=== PATIENT | female | born 1950 | race Caucasian/White ===

== ENCOUNTER 2016-12-18 05:39 | Inpatient (IN) | payer BC ==
--- NOTE | 2016-12-13 07:49 | MH ---
cc: BRUCE COLÓN M.D. DATE OF ADMISSION: 12/18/16 12/18/2016 ADMITTING DIAGNOSIS Osteoarthritis of the left knee, pain of the left knee. HISTORY OF PRESENT ILNESS The patient is a 66-year-old white female who has had a rather lengthy history of pain involving her left knee. Her history extended back to the 1980s when she originally became symptomatic with pain involving both knees as related to osteoarthritis. Over 10 year interval of time she had undergone at least two arthroscopic surgeries involving each knee for ongoing management but became progressively more symptomatic with pain. In 2004, she subsequently underwent a right total knee arthroplasty as completed by Dr. David Munoz in the [facility]. The patient reported an uneventful recovery thereafter, but she continued to experience pain about her left knee that became more pronounced within the past two years for which she had received additional physical therapy intervention as well as having undergone additional cortisone injections while taking Tylenol for pain relief. She became progressively more symptomatic with pain associated with swelling, grinding and a cracking sensation as well as an occasional locking and giving away, especially as related to prolonged walking activities and attempting to negotiate stairs. She had experienced obvious limitations with regards to all activities of daily living while attempting to swim as part of her exercise program. She presented to the undersigned physician in October of this year and, at that time, her previous x-ray studies demonstrated tricompartmental degenerative changes for which various treatment options were reviewed. The pros and cons of continuing with conservative management versus operative intervention that would involve total knee arthroplasty were outlined in detail. Emphasis was made regarding the fact that the decision to proceed with surgery would be left entirely to the patient's discretion. The patient readily admitted that she felt she had exhausted all modes of conservative treatment and, given the progressive nature of her pain associated with pronounced limitations of activities of daily living and failure to respond to modifications of her lifestyle, she was ready to proceed with surgery as discussed. In compliance with her wishes, she has currently been scheduled for admission in order that left total knee arthroplasty be accomplished. PAST MEDICAL HISTORY, HOSPITALIZATIONS AND SURGERIES In addition to the arthroscopic procedures as described as well as having undergone right total knee arthroplasty have included - 1. Repair of the left Achilles tendon rupture 2. Rotator cuff surgery of the right shoulder 3. Abdominal hysterectomy and oophorectomy 4. Appendectomy, 5. Tonsillectomy, 6. Colonoscopy, 7. Upper endoscopy with esophageal dilation 8. Laparoscopic cholecystectomy. 9. The patient has also been hospitalized in the past for psychiatric management and continues to receive ongoing ECT treatment. Medical illnesses include 1. Depression, 2. Thyroid disease, 3. Urinary incontinence 4. Acid reflux 5. Achilles tendonitis 6. Osteoporosis 7. Sleep disorder. MEDICATIONS Current 1. Paroxetine 50 mg daily. 2. Levofloxacin 150 mg daily. 3. 50 mg daily 4. Pantoprazole 40 mg daily. 5. Diclofenac 75 mg twice daily 6. Forteo 20 mg as a one-time injection on a scheduled basis. 7. Trazodone 150-200 p.r.n. sleep. ALLERGIES STATIN DRUGS IODINE SULFA (ALL HAVE CAUSED RASH FORMATION) ZOFAN - HAS ACTUALLY BEEN ASOCIATED WITH A NAUSEA TYPE RESPONSE. REVIEW OF SYSTEMS She does wear glasses. Denies headache, seizure or syncope. No sinus congestion or epistaxis. Auditory acuity intact. No tinnitus. No bleeding gums or dysphagia. Denies cough, shortness of breath, upper respiratory infection, pneumonia or tuberculosis. No angina or heart disease. Her appetite is good, bowel movements are regular. No hepatitis, gallbladder disease, ulcers or hemorrhoids. She has had previous urinary tract infection. No kidney stones, although she has a history of urinary incontinence. Fractures of both little fingers treated non-operatively, history of nasal fracture, psychiatric management for depression and anxiety disorder. She also describes having a history of vocal cord tremors which apparently has been associated with some dysphagia and is prone to develop keloids. Her remaining review of systems is unremarkable and noncontributory. FAMILY HISTORY The patient has had a partner for 37 years, but they were within the past two years. Her partner is 75 years of age and indicated to be in good health. Her family history is noncontributory in that the patient indicates she was adopted and has no pertinent history in this regard. SOCIAL HISTORY The patient has been retired for almost 17 years. 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 She admits to a one half pack per day use of tobacco for almost 30 years. Ethanol consumption on a limited and social basis. PHYSICAL EXAMINATION Height 5 feet 7 inches, weight 165 pounds. An alert, oriented and responsive 66-year-old white female who sits quietly upon the examination table with no obvious distress. HEENT: Pupils are equally round and reactive to light. Extraocular movements full. Sclerae clear. External nares clear. External auditory canals clear. Dental intact. Mucous membranes pink and moist. Pharynx clear. NECK: Supple. There is mild discomfort at the extremes of motion indicated to be chronic in nature. Carotid pulse palpable bilaterally. Trachea midline. Thyroid without enlargement. LUNGS: Clear to auscultation and percussion. No CVA tenderness. No discomfort throughout the dorsal lumbar spine. HEART: Regular rhythm. No murmur or gallop. ABDOMEN: Soft, nontender. Bowel sounds present. PELVIC: Per primary care physician. EXTREMITIES: Left knee - there is medial joint line tenderness without palpable deformity. No swelling or effusion. Apprehension and compression sign negative. Zero to 115 degree range of motion with discomfort at the extreme of flexion and crepitation elicited. No collateral ligamentous laxity. Silvia test and drawer sign negative. Pivot shift and Cal sign positive for anterior knee pain. Straight-leg raising unremarkable at 80 degrees, satisfactory mobility of the left hip with no associated pain. Distal sensory grossly intact. Independent gait. NEUROLOGIC: Cranial nerves II-XII grossly intact. IMPRESSION Osteoarthritis of the left knee, pain left knee. Comorbidities including depression, hypothyroidism, urinary incontinence and acid reflux. PLAN Left total knee arthroplasty. The nature of the planned surgical procedure, the potential complications and risks associated, the expectations of surgery and the consent form have been thoroughly reviewed with the patient prior to her admission to the hospital. Caitlin has indicated her full understanding regarding all of the above and given consent to proceed with treatment as outlined. Medical evaluation and clearance for surgery has been completed by her primary care physician, Dr. Bee Knox. Cardiology clearance per Dr. Fair. MD NEYMAR Bella/ /4:44 PM /7:39 AM
[~2016-12-18] VITALS: Ht 170.2 cm; Wt 84.0 kg
[~2016-12-18 05:39] MED LIST: IBUP-232 PO; LEVO175T2 PO; MIRA50TA PO; PANT40TA3 PO; PAXI25TA5 PO; TRAZ50TA12 PO; WALKER STANDARD
[2016-12-18] MEDS ORDERED: ceFAZolin INJ 1,000 MG VIAL ONE (05:59)
[2016-12-18] MEDS ORDERED: LACTATED RINGER'S 1000 ML IV PRN (06:00)
[2016-12-18] MEDS ORDERED: POVIDONE IODINE 5% (ANTISEPSIS KIT) 4 APPLICATIONS EACH NARE PRN (06:00)
[2016-12-18] MEDS ORDERED: ceFAZolin 2 GM PREMIX 50 ML IV SCH (06:00)
[2016-12-18] MEDS ORDERED: SODIUM CHLORID 0.9% 500 ML IV PRN (06:00)
[2016-12-18] MEDS ORDERED: INSULIN HUMAN REGULAR 1,000 UNITS/10 ML VIAL SQ PRN (06:00)
[2016-12-18] MEDS ORDERED: CHLORHEXIDINE GLUCONATE 2 % 1 PACK (2 CLOTHS) TOPICAL PRN (06:00)
[2016-12-18] MEDS ORDERED: METOPROLOL TARTRATE 25 MG TAB PO PRN (06:00)
[2016-12-18] MEDS ORDERED: TRANEXAMIC ACID 1 GM PRIOR TO PROCEDURE IV SCH ×2 (06:00)
[2016-12-18] MEDS ORDERED: FORT600S SQ (06:24)
[2016-12-18] MEDS ORDERED: APREPITANT 40 MG CAP ONE (07:03)
[2016-12-18] MEDS ORDERED: ACETAMINOPHEN 1000 MG/100 ML 100 ML IV ONE (07:03)
[2016-12-18] MEDS ORDERED: FAMOTIDINE 20 MG/2 ML VIAL ONE (07:04)
[2016-12-18] MEDS ORDERED: CHLORHEXIDINE GLUCONATE 4% SOLN 120 ML BTL TOPICAL SCH (07:30)
[2016-12-18] MEDS ORDERED: MIDAZOLAM HCL 2 MG/2 ML VIAL ONE (07:38)
[2016-12-18] MEDS ORDERED: BUPIVACAINE HCL PF 0.5% 30 ML VIAL NERV BLOCK ONE ×2 (08:45→09:31)
[2016-12-18] MEDS ORDERED: TRANEXAMIC ACID 1 GM POST-OP IV SCH ×2 (09:00)
[2016-12-18] MEDS ORDERED: Post-op Orders (for Pharmacy) MISC XX ONE (09:46)
[2016-12-18] MEDS ORDERED: DO NOT ADM ANY ANTICOAGULANT DRUGS PRN (09:46)
[2016-12-18] MEDS ORDERED: PROMETHAZINE INJ 25 MG/ML VIAL IM PRN (10:00)
[2016-12-18] MEDS ORDERED: MISCELLANEOUS PHARMACY INFORMATION XX ONE (10:00)
[2016-12-18] MEDS ORDERED: DOCUSATE SODIUM 100 MG CAP PO PRN (10:00)
[2016-12-18] MEDS ORDERED: ACETAMINOPHEN 325 MG TAB PO PRN (10:00)
[2016-12-18] MEDS ORDERED: SODIUM CHLORIDE 0.9% FLUSH 5 ML FLUSH IVF PRN (10:00)
[2016-12-18] MEDS ORDERED: TRANEXAMIC ACID INJ 1,000 MG in SODIUM CHLORIDE 0.9% INJ 100 ML IV SCH (10:00)
[2016-12-18] MEDS ORDERED: NALOXONE HCL 0.4 MG/ML AMP IV PRN (10:00)
[2016-12-18] MEDS ORDERED: diphenhydrAMINE HCL 25 MG CAP PO PRN (10:00)
[2016-12-18] MEDS ORDERED: ZOLPIDEM TARTRATE 5 MG TAB PO PRN (10:00)
[2016-12-18] MEDS ORDERED: *PROMETHAZINE 25 MG/ML VIAL PERIprocedural use ONLY ONE (10:04)
[2016-12-18] MEDS ORDERED: *morphine SULFATE 8 MG/ML PERIprocedure ONLY ONE (10:04)
--- NOTE | 2016-12-18 10:30 | MP ---
cc: BRUCE RIOS DATE OF SURGERY: December 18, 2016 PREOPERATIVE DIAGNOSIS Osteoarthritis of the left knee and pain of the left knee. POSTOPERATIVE DIAGNOSIS Osteoarthritis of the left knee and pain of the left knee. PROCEDURE Left total knee arthroplasty. SURGEON Dr. Rios ANESTHESIA General endotracheal. INDICATIONS A 66-year-old white female with a lengthy history of pain involving her left knee extending back to the 1980s when she had become symptomatic with pain involving both knees as related to osteoarthritis. Over a 10-year interval of time she had undergone at least two arthroscopic surgeries involving each knee for management but became progressively more symptomatic with pain. In 2004 she underwent a right total knee arthroplasty as completed by Dr. David Munoz in the [facility]. The patient reported an uneventful recovery thereafter but continued to experience pain of her left knee that became more pronounced within the past 2 years for which she had received additional physical therapy as well as having undergone cortisone injections and taking Tylenol for pain relief. She became progressively more symptomatic with pain associated with swelling, grinding and a cracking sensation with an occasional locking and giving way, especially as related to prolonged walking activities and attempting to negotiate stairs. She was obviously experiencing considerable limitations with regards to all activities of daily living while attempting to swim as part of her exercise program. She presented to the undersigned physician in October of this year and at that time her x-ray studies had demonstrated tricompartmental degenerative changes for which treatment options were reviewed. The pros and cons of continuing with conservative management versus operative intervention that would involve a total knee arthroplasty were outlined in detail. Emphasis was made regarding the fact that the decision to proceed with surgery would be left entirely to the patient's discretion. The patient readily admitted that she felt she had exhausted all modes of conservative treatment and given the progressive nature of her pain associated with pronounced limitations she was ready to proceed with surgery as discussed. In compliance with her wishes she was scheduled for admission at this time in order that total knee arthroplasty be completed. FORMAT Following induction of satisfactory general anesthesia as completed per the Department of Anesthesia, a tourniquet was established around the proximal portion of the left lower extremity. The extremity proper was isolated with a U drape thereafter being prepped with Betadine solution and draped into a sterile field in the routine manner. Prior to initiation of the actual procedure the standard time-out protocol was completed, all parameters were appropriately addressed and confirmed by operating room personnel. The extremity was elevated for approximately 1 minute and the tourniquet thus inflated to 250 mmHg pressure. A sharp skin incision was initiated midline over the anterior aspect of the knee and developed to underlying subcutaneous tissue with hemostasis maintained by electrocautery. By deepening dissection the anterior capsule was exposed. A medial capsulotomy was completed and the patella subluxed in a lateral orientation. Examination of the joint space revealed tricompartmental degenerative changes but definitely being most pronounced about the medial compartment where there was complete erosion of articular cartilage and underlying subchondral bone exposed. The articular surface of the patella was resected. The three holed guide was utilized for establishing post holes. Anterior cruciate ligament as well as medial and lateral meniscus structures were sharply excised. A centering hole was placed in the distal aspect of the femur allowing positioning of the intramedullary guide. The distal femoral cutting jig was attached and the distal femur resected. AP measurement noted 65 mm sizing to be appropriate. The matching cutting block was positioned, anterior, posterior and chamfer cuts were completed. The tibial plateau was subluxed in an anterior orientation allowing positioning of the extramedullary guide. The tibial plateau was resected and measured with 75 mm sizing determined to be satisfactory. A trial reduction followed utilizing a 65 mm anatomic femoral component, a 75 mm tibial base with a 10 mm bearing insert trialed. The knee was readily brought to full extension. There was no laxity to varus valgus stress at both zero and 90 degrees flexed posture. Orientation was confirmed with appropriate measurement of the pelvic guide through the mechanical axis of the knee. A trial reduction followed utilizing a 31 mm standard patellar button, again good tracking demonstrated with no tendency toward subluxation. All trial components being removed the remaining portion of the proximal tibia was prepared for insertion of the permanent component. The joint space was thoroughly lavaged with pulsating antibiotic solution, hemostasis being maintained by electrocautery. An autogenous bone plug was inserted into the distal femoral guide hole and thereafter a preparation of cobalt bone cement was utilized in inserting knee components in a sequential fashion which included a 75 mm fixed cruciate tibial plate to which a 10 mm Vanguard tibial bearing insert was secured with locking bain. The 65 mm Vanguard femoral component was firmly seated. Excess cement being removed the knee was brought to full extension and thereafter a three post standard all poly patellar button was attached and maintained in place with patellar clamp while cement hardening was completed. Final range of motion assessment noted good tracking stability throughout the knee. Irrigation repeated with hemostasis maintained. Autovac drain tubes were inserted through superior stab wounds. The capsule was repaired with 0 Vicryl suture. The remaining portion of the wound was closed in layers in routine manner. Skin margins being reapproximated with a running subcuticular 3-0 Vicryl suture over which Steri-Strips were applied. Xeroform gauze and a bulky dry sterile dressing were placed. Tourniquet deflated after 54 minutes of tourniquet time, the extremity being supported in a canvas knee splint, anesthesia was discontinued and she was thereafter transferred to a hospital bed and returned to the recovery room in satisfactory condition having tolerated her operative procedure well. Estimated blood loss was approximately 150 ccs as determined per anesthesia. All implants were of the [employer] surveillance operator. MD NEYMAR Bella/TLL /9:48 AM /9:59 AM
[2016-12-18] MEDS: DEXT 5%-NACL 0.45% 1000 ML INJ 1,000 ML IV SCH ×2 (11:00→17:58)
--- NOTE | 2016-12-18 11:14 | RADRPT ---
EXAM DATE/TIME: 12/18/2016 10:49 [facility] COMPARISON: No previous studies available for comparison. INDICATIONS : Post op left knee arthroplasty. MEDICAL HISTORY : None. SURGICAL HISTORY : Lumbar surgeries. ENCOUNTER: Initial ACUITY: 1 day PAIN SCORE: Non-responsive. LOCATION: Left knee FINDINGS: 2 views of the knee show a total knee prosthesis in good position. No fracture or dislocation is obse rved. Soft tissue swelling is noted. Surgical drains. CONCLUSION: Total hip prosthesis in good position. Lito Sierra Jr., MD on December 18, 2016 at 11:12 Board Certified Radiologist. This report was verified electronically.
[2016-12-18] MEDS: MORPHINE SULFATE 30 MG/30 ML PCA IV SCH (11:26)
[2016-12-18] MEDS ORDERED: PHENYLEPH/NS 1000 MCG/10 ML SYR IV ONE (12:00)
[2016-12-18] MEDS ORDERED: NEOSTIGMINE 3 MG/3 ML SYR IV ONE (12:00)
[2016-12-18] MEDS ORDERED: PROPOFOL 200 MG/20 ML AMP IV ONE (12:00)
[2016-12-18] MEDS ORDERED: LACTATED RINGER'S 1000 ML INJ 1,000 ML IV ONE (12:00)
[2016-12-18] MEDS: PCA - TOTAL MG MORPHINE DELIVERED PER SHIFT SCH ×2 (14:00→23:23)
[2016-12-18 15:54] VITALS: BP 120/56; PULSE 74; RESP 18; TEMP 95.9; O2SAT 95
--- NOTE | 2016-12-18 19:42 | PD.CONS ---
HPI Service [facility] Consult Requested By Orthopedic surgery. Reason for Consult Medical management. Primary Care Physician Non-Staff Diagnoses: History of Present Illness Ms. Brand is a pleasant 66 year old female with a history of long standing osteoarthritis, hypothyroidism who underwent left total knee arthroplasty on . Patient was seen after she came to the orthopedic floor after surgery. At the time of this interview, patient is somewhat drowsy, her significant other is at bedside. Patient has no specific concerns. She reports significant left knee pain despite conservative management. Her pain is well controlled. Denies any changes in bowel or bladder habits. Denies any chest pain, shortness of breath, fever, chills. No abdominal pain. Review of Systems Except as stated in HPI: all other systems reviewed are Neg Past Family Social History Allergies: Coded Allergies: amlodipine (Unverified Allergy, Intermediate, Rash, 12/18/16) atorvastatin (Unverified Allergy, Intermediate, Rash, 12/18/16) ondansetron (Unverified Allergy, Intermediate, 12/18/16) pravastatin (Unverified Allergy, Intermediate, Rash, 12/18/16) simvastatin (Unverified Allergy, Intermediate, Rash, 12/18/16) meperidine (Unverified Allergy, Mild, 12/18/16) Sulfa (Sulfonamide Antibiotics) (Unverified Allergy, Unknown, 12/18/16) iodine (Unverified Allergy, Unknown, 12/18/16) potassium iodide (Unverified Allergy, Unknown, 12/18/16) povidone-iodine (Unverified Allergy, Unknown, 12/18/16) sodium iodide (Unverified Allergy, Unknown, 12/18/16) Past Medical History Hypothyroidism Depression Insomnia GERD Achilles tendonitis Osteoarthritis Osteoporosis Past Surgical History Achilles tendon repair Right shoulder rotator cuff surgery Hysterectomy/oophorectomy Appendectomy, tonsillectomy Right knee arthroplasty Reported Medications Current Medications Lactated Ringer's 1,000 ml @ 30 mls/hr Q24H PRN IV SEE LABEL COMMENTS; Start at 06:00; Stop 12/18/16 at 10:11; Status DC Sodium Chloride 500 ml @ 30 mls/hr [id number] PRN IV SEE LABEL COMMENTS; Start at 06:00; Stop 12/18/16 at 10:11; Status DC Metoprolol Tartrate (Lopressor) 25 mg INFORMATICS SPECIALIST PRN PO SEE LABEL COMMENTS; Start 12/18/16 at 06:00; Stop 12/21/16 at 05:59 Povidone Iodine (Betadine 5% Antisepsis Kit) 1 applic INFORMATICS SPECIALIST PRN EACH NARE SEE LABEL COMMENTS; Start 12/18/16 at 06:00; Stop 12/21/16 at 05:59; Status Cancel Chlorhexidine Gluconate (Chlorhexidine 2% Cloth) 3 pack INFORMATICS SPECIALIST PRN TOPICAL SEE LABEL COMMENTS Last administered on 12/18/16 06:00; Start 12/18/16 at 06:00 ; Stop 12/21/16 at 05:59 Insulin Human Regular (NovoLIN R INJ) See Protocol Table ... INFORMATICS SPECIALIST PRN SQ SEE PROTOCOL TABLE; Start 12/18/16 at 06:00; Stop 12/21/16 at 05:59 Cefazolin Sodium/ Dextrose 50 ml @ 100 mls/hr INFORMATICS SPECIALIST IV Last administered on 12/18/16 06:58; Start 12/18/16 at 06:00; Stop 12/18/16 at 10:12; Status DC Tranexamic Acid 1000 mg/Sodium Chloride 110 ml @ 220 mls/hr ONCE IV Last administered on 12/18/16 07:00; Start 12/18/16 at 06:00; Stop 12/18/16 at 12:00 ; Status DC Tranexamic Acid 1000 mg/Sodium Chloride 110 ml @ 220 mls/hr ONCE IV Last administered on 12/18/16 11:28; Start 12/18/16 at 09:00; Stop 12/18/16 at 15:00 ; Status DC Cefazolin Sodium (Ancef Inj) 2,000 mg STK-MED ONCE .ROUTE Last administered on 12/18/16 07:48; Start 12/18/16 at 05:59; Stop 12/18/16 at 06:00; Status DC Acetaminophen 100 ml @ As Directed STK-MED ONCE IV ; Start 12/18/16 at 07:03; Stop 12/18/16 at 07:04; Status DC Aprepitant (Emend) 40 mg STK-MED ONCE .ROUTE ; Start 12/18/16 at 07:03; Stop at 07:04; Status DC Famotidine (Pepcid Inj) 20 mg STK-MED ONCE .ROUTE ; Start 12/18/16 at 07:04; Stop 12/18/16 at 07:05; Status DC Chlorhexidine Gluconate (Hibiclens 4% Top Soln) 1 applic ONCE TOPICAL ; Start at 07:30; Stop 12/21/16 at 07:29 Midazolam HCl (Versed Inj) 2 mg STK-MED ONCE .ROUTE ; Start 12/18/16 at 07:38; Stop 12/18/16 at 07:39; Status DC Fentanyl Citrate (fentaNYL INJ) 300 mcg STK-MED ONCE .ROUTE ; Start 12/18/16 at 07:38; Stop 12/18/16 at 07:39; Status DC IV Flush (NS Flush) 2 ml UNSCH PRN IVF FLUSH AFTER USING IV ACCESS; Start 12/18 at 10:00 IV Flush (NS Flush) 2 ml BID IVF ; Start 12/18/16 at 21:00 Cefazolin Sodium 1000 mg/Sodium Chloride 100 ml @ 200 mls/hr Q6H IV Last administered on 12/18/16t 18:15; Start 12/18/16 at 13:00; Stop 12/19/16 at 01:29 Miscellaneous Information (Post-op Orders (for Pharmacy)) STAT ONCE XX ; Start 12/18/16 at 09:46; Stop 12/18/16 at 10:18; Status DC Rivaroxaban (Xarelto) 10 mg Q24H PO ; Start 12/19/16 at 09:00 Miscellaneous Medication ([facility] Information) ONCE ONCE XX ; Start at 10:00; Stop 12/18/16 at 10:13; Status DC Acetaminophen/ Hydrocodone Bitart ([place] 5-325 Mg) 1 tab Q4H PRN PO PAIN LESS THAN 5 ON SCALE; Start 12/18/16 at 10:00 Acetaminophen/ Hydrocodone Bitart ([place] 5-325 Mg) 2 tab Q4H PRN PO PAIN SCALE 5 TO 10; Start 12/18/16 at 10:00 Acetaminophen (Tylenol) 650 mg Q6H PRN PO Temp > 101; Start 12/18/16 at 10:00 Tranexamic Acid 1000 mg/Sodium Chloride 110 ml @ 200 mls/hr UNSCH IV ; Start at 10:00; Stop 12/18/16 at 10:15; Status DC Docusate Sodium (Colace) 100 mg BID PRN PO constipation; Start 12/18/16 at 10: 00 Zolpidem Tartrate (Ambien) 5 mg HS PRN PO SLEEP; Start 12/18/16 at 10:00 Naloxone HCl (Narcan Inj) 0.4 mg UNSCH PRN IV RESPIRATORY RATE LESS THAN 10; Start 12/18/16 at 10:00 Diphenhydramine HCl (Benadryl) 25 mg Q6H PRN PO ITCHING; Start 12/18/16 at 10: 00 Morphine Sulfate (Morphine 1 Mg/ ml ADMITTED ATTORNEYS) 30 mg UNSCH IV Last administered on 11:26; Start 12/18/16 at 10:00; Stop 12/20/16 at 09:59 ADMITTED ATTORNEYS Dosage Infused (Pha) 1 Q8HR .XX Last administered on 12/18/16 14:00; Start 12/18/16 at 14:00; Stop 12/20/16 at 13:59 Dextrose/Sodium Chloride 1,000 ml @ 125 mls/hr Q8H IV Last administered on 11:00; Start 12/18/16 at 09:58 Promethazine HCl (Phenergan Inj) 25 mg Q6H PRN IM nausea; Start 12/18/16 at 10: 00 Morphine Sulfate (*morphine INJ PERIprocedure ONLY) 8 mg STK-MED ONCE .ROUTE Last administered on 12/18/16 10:04; Start 12/18/16 at 10:04; Stop 12/18/16 at 10:05; Status DC Promethazine HCl (*PHENERGAN INJ PERIprocedural ONLY) 25 mg STK-MED ONCE .ROUTE Last administered on 12/18/16 10:04; Start 12/18/16 at 10:04; Stop 12/18/16 at 10:05; Status DC Miscellaneous Information ALL NURSING DEPARTME... UNSCH PRN .XX SEE LABEL COMMENTS; Start 12/18/16 at 09:46; Stop 12/19/16 at 09:45 Family History Mother - Breast cancer Father - colon cancer. Social History Drinks about 3 drinks per week. Smokes about 1/3 pack per day. Denies using illicit drugs. Physical Exam Vital Signs Vital Signs Date Time Temp Pulse Resp B/P (MAP) Pulse Ox O2 Delivery O2 Flow Rate FiO2 12/18/16 15:54 95.9 74 18 120/56 (77) 95 12/18/16 14:02 Nasal Cannula 2.00 12/18/16 13:00 72 16 101/53 (69) 98 Nasal Cannula 2 12/18/16 12:00 84 16 102/53 (69) 98 Nasal Cannula 2 12/18/16 12:00 16 12/18/16 11:30 78 16 101/55 (70) 99 Nasal Cannula 2 12/18/16 11:26 16 12/18/16 11:00 74 16 99/50 (66) 98 Nasal Cannula 2 12/18/16 10:45 78 16 97/51 (66) 98 Nasal Cannula 2 12/18/16 10:30 72 16 96/51 (66) 97 Nasal Cannula 2 12/18/16 10:15 74 16 118/56 (76) 96 Nasal Cannula 2 12/18/16 10:00 74 16 123/55 (77) 97 Nasal Cannula 2 12/18/16 09:46 97.8 80 16 147/63 (91) 95 Nasal Cannula 2 Physical Exam GENERAL: This is a well-nourished, well-developed patient, in no apparent distress. Somewhat drowsy. SKIN: No rashes, ecchymoses or lesions. Warm and dry. HEAD: Atraumatic. Normocephalic. No temporal or scalp tenderness. EYES: Pupils equal round and reactive. No injection or drainage. ENT: Nose without bleeding, purulent drainage or septal hematoma. Airway patent. NECK: Trachea midline. No lymphadenopathy. Supple, nontender, no meningeal signs. CARDIOVASCULAR: Regular rate and rhythm without murmurs, gallops, or rubs. No JVD. RESPIRATORY: Clear to auscultation. Breath sounds equal bilaterally. No wheezes , rales, or rhonchi. GASTROINTESTINAL: Abdomen soft, non-tender, nondistended. No guarding. MUSCULOSKELETAL: Extremities without clubbing, cyanosis, or edema. Able to move all toes. Left knee wrapped. NEUROLOGICAL: Drowsy. Cranial nerves II through XII intact. No focal neurological deficits. Normal speech. Imaging Last Impressions Knee X-Ray 12/18/16 0958 Signed Impressions: Service Date/Time: Sunday, December 18, 2016 10:49 - CONCLUSION: Total hip prosthesis in good position. Lito Sierra Jr., MD Assessment and Plan Problem List: (1) Osteoarthritis of left knee ICD Code: M17.12 - Unilateral primary osteoarthritis, left knee (2) Hypothyroidism ICD Code: E03.9 - Hypothyroidism, unspecified (3) Osteoporosis ICD Code: M81.0 - Age-related osteoporosis without current pathological fracture Assessment and Plan Ms. Brand is a pleasant 66 year old female with a history of osteoporosis, osteoarthritis, hypothyroidism who underwent left total knee arthroplasty on . - Left knee osteoarthritis - s/p Left total knee arthroplasty. - Currently on Morphine ADMITTED ATTORNEYS. - [place] PRN. - Colace for constipation - Xarelto 10mg Q24hrs starting 12/19/2016. - H&H in the AM pending. - Osteoporosis - Patient takes Teriparatide 20mcg SQ daily at home. - Hypothyroidism - GERD - Continue Levothyroxine 175mcg Qday and PPI. - Depression - Continue Paroxetine 25mg Qday. Full code. Xarelto starting 12/19/2016. Thank you for the consult. We will continue to follow this patient. Jerry Michael DO Dec 18, 2016 19:42
[2016-12-18 20:00] VITALS: BP 131/72; PULSE 95; RESP 19; TEMP 99.7; O2SAT 98
[2016-12-18] MEDS: SODIUM CHLORIDE 0.9% FLUSH 5 ML FLUSH IVF SCH (20:05)
[2016-12-18 23:40] VITALS: BP 130/66; PULSE 71; RESP 19; TEMP 99.5; O2SAT 98
[2016-12-19] VITALS (7 sets, daily range): BP systolic 108–129; BP diastolic 54–60; PULSE 68–96; RESP 17–19; TEMP 96.5–100.7; O2SAT 93–98
[2016-12-19] MEDS: DEXT 5%-NACL 0.45% 1000 ML INJ 1,000 ML IV SCH ×4 (00:52→21:58)
[2016-12-19] MEDS: MORPHINE SULFATE 30 MG/30 ML PCA IV SCH (02:41)
[2016-12-19 04:59] LABS: HEMATOCRIT 35.4 % (35.0-46.0); REVIEW FLAG FINAL
[2016-12-19] MEDS: LEVOTHYROXINE SODIUM 75 MCG TAB PO SCH (05:03)
[2016-12-19] MEDS: LEVOTHYROXINE SODIUM 100 MCG TAB PO SCH (05:03)
[2016-12-19] MEDS: PCA - TOTAL MG MORPHINE DELIVERED PER SHIFT SCH ×3 (05:05→19:53)
[2016-12-19] MEDS ORDERED: WALKER STANDARD (06:24)
[2016-12-19] MEDS ORDERED: HYDR-3516 PO (06:24)
[2016-12-19] MEDS ORDERED: ASPI325T PO (06:24)
--- NOTE | 2016-12-19 06:26 | HHI.FF ---
Face to Face Verification Diagnosis: (1) Osteoarthritis of left knee Physical Therapy Gait training Knee: Total knee, Protocol: Left, Full weight bearing Left LE Weight Bearing: WB as tolerated Left LE Range of Motion: Active ROM Nursing Dressing Changes: Daily dressing change I have seen patient Caitlin Brand on 12/19/16. My clinical findings support the need for the requested home health care services because: Limited ability to care for self High risk of falls I certify that my clinical findings support that this patient is homebound because: Post-op weakness Unsteady gait/balance Unsafe to leave home unassisted Hipolito Rios MD Dec 19, 2016 06:26
[2016-12-19] MEDS: RIVAROXABAN 10 MG TAB PO SCH (08:36)
[2016-12-19] MEDS: SODIUM CHLORIDE 0.9% FLUSH 5 ML FLUSH IVF SCH ×2 (08:36→19:51)
[2016-12-19] MEDS: PANTOPRAZOLE SOD 40 MG DELAYED RELEASE TAB PO SCH (08:36)
[2016-12-19] MEDS: PARoxetine 25 MG CONTROLLED RELEASE TAB PO SCH (08:36)
[2016-12-19] MEDS: TOLTERODINE TARTRATE 4 MG CAP LA PO SCH (08:36)
--- NOTE | 2016-12-19 13:47 | HHI.PR ---
Subjective Remarks Follow-up for left knee osteoarthritis status post left total knee arthroplasty. Patient is currently doing well. At the time of this interview patient was eating breakfast but somewhat drowsy as well. No fever or chills. Able to move her left lower extremity. Pain is well controlled. Objective Vitals Vital Signs Date Time Temp Pulse Resp B/P (MAP) Pulse Ox O2 Delivery O2 Flow Rate FiO2 12/19/16 11:47 98 Nasal Cannula 3.00 12/19/16 11:28 96.5 83 18 109/58 (75) 97 12/19/16 08:30 Nasal Cannula 2.00 12/19/16 07:39 97.8 68 18 108/54 (72) 96 12/19/16 05:05 18 12/19/16 04:05 99.1 72 19 129/60 (83) 97 12/19/16 03:18 98 Nasal Cannula 2.00 12/19/16 02:41 16 12/18/16 23:40 99.5 71 19 130/66 (87) 98 12/18/16 23:23 18 12/18/16 20:19 Nasal Cannula 2.00 12/18/16 20:00 99.7 95 19 131/72 (91) 98 12/18/16 15:54 95.9 74 18 120/56 (77) 95 12/18/16 14:02 Nasal Cannula 2.00 I/O 12/18/16 12/18/16 12/18/16 12/19/16 12/19/16 12/19/16 07:00 15:00 23:00 07:00 15:00 23:00 Intake Total 1400 ml 340 ml 340 ml Output Total 100 ml 240 ml Balance 1300 ml 340 ml 100 ml Intake Oral 240 ml 240 ml IV Total 100 ml 100 ml 100 ml Autotransfusion 200 ml Other 1100 ml Output Drainage Total 240 ml Estimated Blood Loss 100 ml # Voids 2 4 # Bowel Movements 0 0 Result Diagram: 12/19/16 0450 Imaging Last Impressions Knee X-Ray 12/18/16 0995 Signed Impressions: Service Date/Time: Sunday, December 18, 2016 10:49 - CONCLUSION: Total hip prosthesis in good position. Lito Sierra Jr., MD Objective Remarks GENERAL: Alert, drowsy. No acute distress. SKIN: Warm and dry. HEAD: Normocephalic. EYES: No scleral icterus. No injection or drainage. NECK: Supple, trachea midline. No JVD or lymphadenopathy. CARDIOVASCULAR: Regular rate and rhythm without murmurs, gallops, or rubs. RESPIRATORY: Breath sounds equal bilaterally. No accessory muscle use. GASTROINTESTINAL: Abdomen soft, non-tender, nondistended. MUSCULOSKELETAL: No cyanosis, or edema. Status post Left total knee arthroplasty. BACK: Nontender without obvious deformity. No CVA tenderness. Procedures 12/18/2016 Left total knee arthroplasty. A/P Problem List: (1) Osteoarthritis of left knee ICD Code: M17.12 - Unilateral primary osteoarthritis, left knee (2) Hypothyroidism ICD Code: E03.9 - Hypothyroidism, unspecified (3) Osteoporosis ICD Code: M81.0 - Age-related osteoporosis without current pathological fracture Assessment and Plan Ms. Brand is a pleasant 66 year old female with a history of osteoporosis, osteoarthritis, hypothyroidism who underwent left total knee arthroplasty on . - Left knee osteoarthritis - s/p Left total knee arthroplasty. - Currently on Morphine COIL TAPER. - [place] PRN. - Colace for constipation - Xarelto 10mg Q24hrs starting 12/19/2016. - H&H --> 12.1 and 35.4. - Osteoporosis - Patient takes Teriparatide 20mcg SQ daily at home. - Hypothyroidism - GERD - Continue Levothyroxine 175mcg Qday and PPI. - Depression - Continue Paroxetine 25mg Qday. Full code. Xarelto starting 12/19/2016. Jerry Michael DO Dec 19, 2016 13:47
[2016-12-19] MEDS: ACETAMINOPHEN/HYDROcodone 325 MG/5 MG TAB PO PRN ×2 (19:51→23:57)
[2016-12-20 00:05] VITALS: BP 105/53; PULSE 78; RESP 17; TEMP 99.9; O2SAT 94
[2016-12-20] MEDS: PCA - TOTAL MG MORPHINE DELIVERED PER SHIFT SCH (05:08)
[2016-12-20] MEDS: LEVOTHYROXINE SODIUM 75 MCG TAB PO SCH (05:13)
[2016-12-20] MEDS: LEVOTHYROXINE SODIUM 100 MCG TAB PO SCH (05:13)
[2016-12-20] MEDS: ACETAMINOPHEN/HYDROcodone 325 MG/5 MG TAB PO PRN ×5 (05:13→23:28)
[2016-12-20 08:00] VITALS: BP 111/54; PULSE 74; RESP 16; TEMP 98.1; O2SAT 92
--- NOTE | 2016-12-20 08:19 | HHI.PR ---
Subjective Remarks Ms. Brand is a pleasant 66 year old female with a history of long standing osteoarthritis, hypothyroidism who underwent left total knee arthroplasty on . Patient was seen after she came to the orthopedic floor after surgery. At the time of this interview, patient is somewhat drowsy, her significant other is at bedside. Patient has no specific concerns. She reports significant left knee pain despite conservative management. Her pain is well controlled. Denies any changes in bowel or bladder habits. Denies any chest pain, shortness of breath, fever, chills. No abdominal pain. 9-1 STATES SHE IS STILL NOT MOVING HER LEFT KNEE WELL OFF IV PAIN MEDS ON ORAL PAIN MEDS WILL WORK WITH PT AND HOPES TO GO HOME TOMORROW WITH HHC Discussed with patient and RN Objective Vitals Vital Signs Date Time Temp Pulse Resp B/P (MAP) Pulse Ox O2 Delivery O2 Flow Rate FiO2 12/20/16 00:05 99.9 78 17 105/53 (70) 94 12/19/16 20:50 Nasal Cannula 2.00 12/19/16 20:10 100.7 86 17 115/58 (77) 93 12/19/16 15:29 96.7 96 19 120/58 (78) 93 12/19/16 11:47 98 Nasal Cannula 3.00 12/19/16 11:28 96.5 83 18 109/58 (75) 97 12/19/16 08:30 Nasal Cannula 2.00 I/O 12/19/16 12/19/16 12/19/16 12/20/16 12/20/16 12/20/16 07:00 15:00 23:00 07:00 15:00 23:00 Intake Total 340 ml 650 ml 40 ml 240 ml Output Total 240 ml 100 ml 30 ml Balance 100 ml 650 ml -60 ml 210 ml Intake Oral 240 ml 650 ml 40 ml 240 ml IV Total 100 ml Output Drainage Total 240 ml 100 ml 30 ml # Voids 4 6 1 3 # Bowel Movements 0 0 0 0 Result Diagram: 12/19/16 0450 Other Results Laboratory Tests Test 12/19/16 04:50 Hemoglobin 12.1 GM/DL Hematocrit 35.4 % Imaging Last Impressions Knee X-Ray 12/18/16 0921 Signed Impressions: Service Date/Time: Sunday, December 18, 2016 10:49 - CONCLUSION: Total hip prosthesis in good position. Lito Sierra Jr., MD Objective Remarks GENERAL: Alert and oriented talkative and cooperative in some pain for her left knee. SKIN: Warm and dry. No obvious rashes HEAD: Atraumatic. Normocephalic. EYES: Pupils equal and round. No scleral icterus. No injection or drainage. Extraocular muscles are grossly intact ENT: No nasal bleeding or discharge. Mucous membranes pink and moist. Tongue is midline NECK: Trachea midline. No JVD. Neck is supple CARDIOVASCULAR: Regular rate and rhythm. S1-S2 no S3 or S4 no heave or thrill or rub or gallop RESPIRATORY: No accessory muscle use. Clear to auscultation. Breath sounds equal bilaterally. GASTROINTESTINAL: Abdomen soft, non-tender, nondistended. Hepatic and splenic margins not palpable. MUSCULOSKELETAL: Extremities without clubbing, cyanosis, or edema. No obvious deformities. Left knee tender some swelling decreased range of motion per patient NEUROLOGICAL: Awake and alert. No obvious cranial nerve deficits. Motor grossly within normal limits. Five out of 5 muscle strength in the arms and legs. Normal speech. PSYCHIATRIC: Appropriate mood and affect; insight and judgment normal. Procedures 12/18/2016 Left total knee arthroplasty. Medications and IVs Current Medications Lactated Ringer's 1,000 ml @ 30 mls/hr Q24H PRN IV SEE LABEL COMMENTS; Start at 06:00; Stop 12/18/16 at 10:11; Status DC Sodium Chloride 500 ml @ 30 mls/hr [id number] PRN IV SEE LABEL COMMENTS; Start at 06:00; Stop 12/18/16 at 10:11; Status DC Metoprolol Tartrate (Lopressor) 25 mg CLINICAL INFORMATICS PHYSICIAN PRN PO SEE LABEL COMMENTS; Start 12/18/16 at 06:00; Stop 12/21/16 at 05:59 Povidone Iodine (Betadine 5% Antisepsis Kit) 1 applic CLINICAL INFORMATICS PHYSICIAN PRN EACH NARE SEE LABEL COMMENTS; Start 12/18/16 at 06:00; Stop 12/21/16 at 05:59; Status Cancel Chlorhexidine Gluconate (Chlorhexidine 2% Cloth) 3 pack CLINICAL INFORMATICS PHYSICIAN PRN TOPICAL SEE LABEL COMMENTS Last administered on 12/18/16t 06:00; Start 12/18/16 at 06:00 ; Stop 12/21/16 at 05:59 Insulin Human Regular (NovoLIN R INJ) See Protocol Table ... CLINICAL INFORMATICS PHYSICIAN PRN SQ SEE PROTOCOL TABLE; Start 12/18/16 at 06:00; Stop 12/21/16 at 05:59 Cefazolin Sodium/ Dextrose 50 ml @ 100 mls/hr CLINICAL INFORMATICS PHYSICIAN IV Last administered on 12/18/16 06:58; Start 12/18/16 at 06:00; Stop 12/18/16 at 10:12; Status DC Tranexamic Acid 1000 mg/Sodium Chloride 110 ml @ 220 mls/hr ONCE IV Last administered on 12/18/16 07:00; Start 12/18/16 at 06:00; Stop 12/18/16 at 12:00 ; Status DC Tranexamic Acid 1000 mg/Sodium Chloride 110 ml @ 220 mls/hr ONCE IV Last administered on 12/18/16 11:28; Start 12/18/16 at 09:00; Stop 12/18/16 at 15:00 ; Status DC Cefazolin Sodium (Ancef Inj) 2,000 mg STK-MED ONCE .ROUTE Last administered on 12/18/16 07:48; Start 12/18/16 at 05:59; Stop 12/18/16 at 06:00; Status DC Acetaminophen 100 ml @ As Directed STK-MED ONCE IV ; Start 12/18/16 at 07:03; Stop 12/18/16 at 07:04; Status DC Aprepitant (Emend) 40 mg STK-MED ONCE .ROUTE ; Start 12/18/16 at 07:03; Stop at 07:04; Status DC Famotidine (Pepcid Inj) 20 mg STK-MED ONCE .ROUTE ; Start 12/18/16 at 07:04; Stop 12/18/16 at 07:05; Status DC Chlorhexidine Gluconate (Hibiclens 4% Top Soln) 1 applic ONCE TOPICAL ; Start at 07:30; Stop 12/21/16 at 07:29 Midazolam HCl (Versed Inj) 2 mg STK-MED ONCE .ROUTE ; Start 12/18/16 at 07:38; Stop 12/18/16 at 07:39; Status DC Fentanyl Citrate (fentaNYL INJ) 300 mcg STK-MED ONCE .ROUTE ; Start 12/18/16 at 07:38; Stop 12/18/16 at 07:39; Status DC IV Flush (NS Flush) 2 ml UNSCH PRN IVF FLUSH AFTER USING IV ACCESS; Start 12/18 at 10:00 IV Flush (NS Flush) 2 ml BID IVF Last administered on 12/19/16 08:36; Start at 21:00 Cefazolin Sodium 1000 mg/Sodium Chloride 100 ml @ 200 mls/hr Q6H IV Last administered on 12/19/16 00:51; Start 12/18/16 at 13:00; Stop 12/19/16 at 01:29 ; Status DC Miscellaneous Information (Post-op Orders (for Pharmacy)) STAT ONCE XX ; Start 12/18/16 at 09:46; Stop 12/18/16 at 10:18; Status DC Rivaroxaban (Xarelto) 10 mg Q24H PO Last administered on 12/19/16 08:36; Start 12/19/16 at 09:00 Miscellaneous Medication ([facility] Information) ONCE ONCE XX ; Start at 10:00; Stop 12/18/16 at 10:13; Status DC Acetaminophen/ Hydrocodone Bitart ([place] 5-325 Mg) 1 tab Q4H PRN PO PAIN LESS THAN 5 ON SCALE Last administered on 12/20/16 05:13; Start 12/18/16 at 10:00 Acetaminophen/ Hydrocodone Bitart ([place] 5-325 Mg) 2 tab Q4H PRN PO PAIN SCALE 5 TO 10; Start 12/18/16 at 10:00 Acetaminophen (Tylenol) 650 mg Q6H PRN PO Temp > 101; Start 12/18/16 at 10:00 Tranexamic Acid 1000 mg/Sodium Chloride 110 ml @ 200 mls/hr UNSCH IV ; Start at 10:00; Stop 12/18/16 at 10:15; Status DC Docusate Sodium (Colace) 100 mg BID PRN PO constipation; Start 12/18/16 at 10: 00 Zolpidem Tartrate (Ambien) 5 mg HS PRN PO SLEEP; Start 12/18/16 at 10:00 Naloxone HCl (Narcan Inj) 0.4 mg UNSCH PRN IV RESPIRATORY RATE LESS THAN 10; Start 12/18/16 at 10:00 Diphenhydramine HCl (Benadryl) 25 mg Q6H PRN PO ITCHING; Start 12/18/16 at 10: 00 Morphine Sulfate (Morphine 1 Mg/ ml SAUSAGE INSPECTOR) 30 mg UNSCH IV Last administered on 02:41; Start 12/18/16 at 10:00; Stop 12/20/16 at 09:59 SAUSAGE INSPECTOR Dosage Infused (Pha) 1 Q8HR .XX Last administered on 12/19/16 13:55; Start 12/18/16 at 14:00; Stop 12/20/16 at 13:59 Dextrose/Sodium Chloride 1,000 ml @ 125 mls/hr Q8H IV Last administered on 11:00; Start 12/18/16 at 09:58 Promethazine HCl (Phenergan Inj) 25 mg Q6H PRN IM nausea; Start 12/18/16 at 10: 00 Morphine Sulfate (*morphine INJ PERIprocedure ONLY) 8 mg STK-MED ONCE .ROUTE Last administered on 12/18/16 10:04; Start 12/18/16 at 10:04; Stop 12/18/16 at 10:05; Status DC Promethazine HCl (*PHENERGAN INJ PERIprocedural ONLY) 25 mg STK-MED ONCE .ROUTE Last administered on 12/18/16 10:04; Start 12/18/16 at 10:04; Stop 12/18/16 at 10:05; Status DC Miscellaneous Information ALL NURSING DEPARTME... UNSCH PRN .XX SEE LABEL COMMENTS; Start 12/18/16 at 09:46; Stop 12/19/16 at 09:45; Status DC Pantoprazole Sodium (Protonix) 40 mg DAILY PO Last administered on 12/19/16 08 :36; Start 12/19/16 at 09:00 Paroxetine HCl (Paxil Cr) 25 mg DAILY PO Last administered on 12/19/16 08:36; Start 12/19/16 at 09:00 Levothyroxine Sodium (Synthroid) 100 mcg DAILY@0600 PO Last administered on 12/20 05:13; Start 12/19/16 at 06:00 Tolterodine Tartrate (Detrol La) 4 mg DAILY PO Last administered on 12/19/16 08:36; Start 12/19/16 at 09:00 Levothyroxine Sodium (Synthroid) 75 mcg DAILY@0600 PO Last administered on 05:13; Start 12/19/16 at 06:00 Magnesium Hydroxide (Milk Of Magnmarcos Liq) 30 ml BID PO ; Start 12/20/16 at 09:00 Urinary Catheter: No Vascular Central Line Catheter: No A/P Problem List: (1) Osteoarthritis of left knee ICD Code: M17.12 - Unilateral primary osteoarthritis, left knee (2) Hypothyroidism ICD Code: E03.9 - Hypothyroidism, unspecified (3) Osteoporosis ICD Code: M81.0 - Age-related osteoporosis without current pathological fracture Assessment and Plan Ms. Brand is a pleasant 66 year old female with a history of osteoporosis, osteoarthritis, hypothyroidism who underwent left total knee arthroplasty on . - Left knee osteoarthritis - s/p Left total knee arthroplasty. - Off morphine IV - [place] PRN. - Colace for constipation - Xarelto 10mg Q24hrs starting 12/19/2016. - H&H --> 12.1 and 35.4. - Osteoporosis - Patient takes Teriparatide 20mcg SQ daily at home. - Hypothyroidism - GERD - Continue Levothyroxine 175mcg Qday and PPI. - Depression - Continue Paroxetine 25mg Qday. Full code. Xarelto starting 12/19/2016. A.m. labs Discussed with patient and Hao Rasheed DO Dec 20, 2016 08:19
[2016-12-20] MEDS: SODIUM CHLORIDE 0.9% FLUSH 5 ML FLUSH IVF SCH ×2 (09:00→20:56)
[2016-12-20] MEDS: TOLTERODINE TARTRATE 4 MG CAP LA PO SCH (09:01)
[2016-12-20] MEDS: MAGNESIUM HYDROXIDE SUSP 30 ML CUP PO SCH ×2 (09:01→20:56)
[2016-12-20] MEDS: PANTOPRAZOLE SOD 40 MG DELAYED RELEASE TAB PO SCH (09:01)
[2016-12-20] MEDS: PARoxetine 25 MG CONTROLLED RELEASE TAB PO SCH (09:01)
[2016-12-20] MEDS: RIVAROXABAN 10 MG TAB PO SCH (09:02)
[2016-12-20] MEDS: DEXT 5%-NACL 0.45% 1000 ML INJ 1,000 ML IV SCH ×2 (09:58→17:58)
[2016-12-20 12:00] VITALS: BP 105/52; PULSE 76; RESP 20; TEMP 97.7; O2SAT 97
[2016-12-20 13:00] VITALS: O2SAT 98
[2016-12-20 20:00] VITALS: BP 120/54; PULSE 89; RESP 20; TEMP 100.1; O2SAT 97
[2016-12-21] VITALS: BP 129/62; PULSE 83; RESP 20; TEMP 99.1; O2SAT 94
[2016-12-21] MEDS: ACETAMINOPHEN/HYDROcodone 325 MG/5 MG TAB PO PRN ×3 (03:42→09:19)
[2016-12-21 04:00] VITALS: BP 104/51; PULSE 71; RESP 20; TEMP 97.8; O2SAT 94
[2016-12-21] MEDS: LEVOTHYROXINE SODIUM 100 MCG TAB PO SCH (05:37)
[2016-12-21] MEDS: LEVOTHYROXINE SODIUM 75 MCG TAB PO SCH (05:37)
[2016-12-21 07:26] LABS: AUTOMATED NEUTROPHIL # 3.7 TH/MM3 (1.8-7.7); BASOPHIL % 0.3 % (0.0-2.0); EOSINOPHIL # 0.1 TH/MM3 (0-0.4); EOSINOPHIL % 1.5 % (0.0-4.0); HEMATOCRIT 30.5 % (35.0-46.0); HEMO FLAGS DIFF FINAL; LYMPH % 31.3 % (9.0-44.0); LYMPHOCYTE # 2.1 TH/MM3 (1.0-4.8); MEAN CELL VOLUME 97.1 FL (80.0-100.0); MEAN CORPUSCULAR HEMOGLOBIN 33.2 PG (27.0-34.0); MEAN CORPUSCULAR HGB CONC 34.2 % (32.0-36.0); MONO % 11.3 % (0.0-8.0); NEUT % 55.6 % (16.0-70.0); PLATELET COUNT 208 TH/MM3 (150-450); RED BLOOD COUNT 3.14 MIL/MM3 (4.00-5.30); RED CELL DISTRIBUTION WIDTH 12.3 % (11.6-17.2); WHITE BLOOD COUNT 6.6 TH/MM3 (4.0-11.0)
[2016-12-21 07:45] LABS: ANION GAP 7 MEQ/L (5-15); AST (GOT) 22 U/L (15-37); BICARBONATE 31.8 MEQ/L (21.0-32.0); BLOOD UREA NITROGEN 9 MG/DL (7-18); CHLORIDE 101 MEQ/L (98-107); GLOMERULAR FILTRATION RATE 93 ML/MIN (>89); MAGNESIUM 2.2 MG/DL (1.5-2.5); POTASSIUM 3.7 MEQ/L (3.5-5.1); SODIUM (NA) 140 MEQ/L (136-145)
[2016-12-21 07:54] LABS: ALKALINE PHOSPHATASE 66 U/L (45-117); ALT (GPT) 21 U/L (10-53); FREE T4 1.62 NG/DL (0.76-1.46); TOTAL BILIRUBIN ADULT 0.4 MG/DL (0.2-1.0)
[2016-12-21 08:00] VITALS: BP 109/55; PULSE 65; RESP 18; TEMP 98.3; O2SAT 95
[2016-12-21] MEDS: DEXT 5%-NACL 0.45% 1000 ML INJ 1,000 ML IV SCH (09:00)
[2016-12-21] MEDS: TOLTERODINE TARTRATE 4 MG CAP LA PO SCH (09:09)
[2016-12-21] MEDS: RIVAROXABAN 10 MG TAB PO SCH (09:09)
[2016-12-21] MEDS: PANTOPRAZOLE SOD 40 MG DELAYED RELEASE TAB PO SCH (09:09)
[2016-12-21] MEDS: PARoxetine 25 MG CONTROLLED RELEASE TAB PO SCH (09:09)
[2016-12-21] MEDS: MAGNESIUM HYDROXIDE SUSP 30 ML CUP PO SCH (09:12)
[2016-12-21] MEDS: SODIUM CHLORIDE 0.9% FLUSH 5 ML FLUSH IVF SCH (09:13)
--- NOTE | 2016-12-21 09:44 | HHI.PR ---
Subjective Remarks Acute events overnight. Afebrile, vital signs stable. Patient seen and examined this morning. Doing well. Has no complaints at this time. Is ready to go home. Objective Vitals Vital Signs Date Time Temp Pulse Resp B/P (MAP) Pulse Ox O2 Delivery O2 Flow Rate FiO2 12/21/16 08:00 98.3 65 18 109/55 (73) 95 12/21/16 04:00 97.8 71 20 104/51 (68) 94 12/21/16 00:00 99.1 83 20 129/62 (84) 94 12/20/16 20:00 100.1 89 20 120/54 (76) 97 12/20/16 13:00 98 Nasal Cannula 2.00 12/20/16 12:00 97.7 76 20 105/52 (69) 97 I/O 12/20/16 12/20/16 12/20/16 12/21/16 12/21/16 12/21/16 07:00 15:00 23:00 07:00 15:00 23:00 Intake Total 240 ml 240 ml Output Total 30 ml Balance 210 ml 240 ml Intake Oral 240 ml 240 ml Output Drainage Total 30 ml # Voids 3 # Bowel Movements 0 Result Diagram: 12/21/16 0638 12/21/16 06 Objective Remarks GENERAL: This is a well-nourished, well-developed patient, in no apparent distress. Somewhat drowsy. SKIN: No rashes, ecchymoses or lesions. Warm and dry. HEAD: Atraumatic. Normocephalic. No temporal or scalp tenderness. EYES: Pupils equal round and reactive. No injection or drainage. ENT: Nose without bleeding, purulent drainage or septal hematoma. Airway patent. NECK: Trachea midline. No lymphadenopathy. Supple, nontender, no meningeal signs. CARDIOVASCULAR: Regular rate and rhythm without murmurs, gallops, or rubs. No JVD. RESPIRATORY: Clear to auscultation. Breath sounds equal bilaterally. No wheezes , rales, or rhonchi. GASTROINTESTINAL: Abdomen soft, non-tender, nondistended. No guarding. MUSCULOSKELETAL: Extremities without clubbing, cyanosis, or edema. Able to move all toes. Left knee wrapped. NEUROLOGICAL: Drowsy. Cranial nerves II through XII intact. No focal neurological deficits. Normal speech. Procedures 12/18/2016 Left total knee arthroplasty. A/P Problem List: (1) Osteoarthritis of left knee ICD Code: M17.12 - Unilateral primary osteoarthritis, left knee (2) Hypothyroidism ICD Code: E03.9 - Hypothyroidism, unspecified (3) Osteoporosis ICD Code: M81.0 - Age-related osteoporosis without current pathological fracture Assessment and Plan Ms. Brand is a pleasant 66 year old female with a history of osteoporosis, osteoarthritis, hypothyroidism who underwent left total knee arthroplasty on . - Left knee osteoarthritis - s/p Left total knee arthroplasty. - [place] PRN. - Colace for constipation - Xarelto 10mg Q24hrs starting 12/19/2016. - H&H stable - Osteoporosis - Patient takes Teriparatide 20mcg SQ daily at home. - Hypothyroidism - GERD - Continue Levothyroxine 175mcg Qday and PPI. - Depression - Continue Paroxetine 25mg Qday. Full code. Xarelto starting 12/19/2016. Discharge Planning Discharged to home today per orthopedic surgery with home health care and home PT. Kat Pugh MD R3 Dec 21, 2016 09:44
[2016-12-21 10:30] LABS: HEMOGLOBIN A1b 0.8 %; HEMOGLOBIN F 0.8 %; HEMOGLOBIN LA1C 2.2 %; HEMOGLOBIN P3 3.6 %
--- NOTE | 2016-12-24 10:41 | MD ---
cc: BEE CHILDRESS M.D. ADMISSION DATE: 12/18/2016 DISCHARGE DATE: 12/21/2016 ADMISSION DIAGNOSIS Osteoarthritis of the left knee and pain of the left knee DISCHARGE DIAGNOSIS Osteoarthritis of the left knee and pain of left knee. HISTORY OF PRESENT ILLNESS: A 66-year-old white female with a lengthy history of pain involving her left knee extending back to the 1980s when she became symptomatic involving both knees as related to osteoarthritis. Over a 10-year interval of time she had undergone at least two arthroscopic procedures of both knees for ongoing management but became progressively more symptomatic with pain. In 2004 she underwent a right total knee arthroplasty as completed by Dr. David Munoz in the [facility]. She reported an uneventful recovery thereafter but continued to experience pain about her left knee that became more pronounced within the past two years when she was receiving additional treatment including physical therapy and cortisone injections while taking Tylenol for pain relief. She became progressively more symptomatic with pain associated with swelling, grinding in a cracking sensation. Occasional locking and giving way, especially as related to prolonged walking activities and attempting to negotiate stairs. She was experiencing obvious limitations regarding all activities of daily living but attempting to swim as part of her exercise program. She presented to the undersigned physician in October of this year and at that time her x-ray studies revealed tricompartmental Phoebe changes for which treatment options were reviewed. The pros and cons of continuing with conservative management versus operative intervention involving total knee arthroplasty was outlined in detail. Emphasis was made regarding the fact that the decision to proceed with surgery would be left entirely to the patient's discretion. The patient readily admitted that she felt she had exhausted all modes of conservative treatment given the progressive nature of her pain with associated limitations regarding all activities of daily living and having to modify her lifestyle she was ready to proceed with surgery as discussed. In compliance with her wishes she was scheduled for admission at this time in order that left total knee replacement be completed. Her physical examination at the time of admission revealed medial joint line tenderness without palpable deformity. No swelling or effusion. Apprehension and compression sign were negative. Zero to 115 degrees range of motion with discomfort at the extreme of flexion and crepitation elicited. No collateral ligamentous laxity. Silvia test and drawer sign negative. Pivot shift and Cal sign positive for anterior knee pain. Straight-leg raising unremarkable at 80 degrees satisfactory mobility of the left hip with no associated pain. Distal sensory grossly intact. Independent gait. HOSPITAL COURSE Prior to admission to the hospital the patient had undergone medical evaluation and clearance for surgery as completed by her primary care physician Dr. Bee Jernigan and cardiology clearance per Dr. Fair. The patient was taken to the operating room on 18 December 2016 and on that date underwent a left total knee arthroplasty completed an uncomplicated manner. She was noted to have tolerated her operative procedure well and her postoperative course stable thereafter. She was progressively mobilized under the guidance of physical therapy being permitted weightbearing to tolerance about the left lower extremity. Hemoglobin/hematocrit assessment postoperatively was 12.1 and 35.4 respectively. Follow up examination of her surgical wound noted be intact healing favorably no evidence of infection. Medical followup per the hospitalist service. DVT prophylaxis initiated. nutritional services cook consulted to assist with discharge planning. The patient had expressed her desire to be discharged home and continue her rehabilitation on outpatient basis. Plans were finalized in this regard and pending medical clearance she was scheduled for transfer on the third postoperative day at which time she was noted making steady progress with regards to her rehab program. She was scheduled be seen in office followup in approximately 4 weeks. Her condition at the time of discharge stable. Prognosis favorable MEDICATIONS discharge medications included 1. Hydrocodone 08/21/2024 #60. 2. Aspirin 325 mg 1 tablet twice daily for 3 weeks #40. MD NEYMAR Bella/jerrica /6:30 AM /10:29 AM
== END 2016-12-21 11:10 | disposition home health service (06) | DRG 470 ==
LOC: HSDI 05:39 → N06B 14:24
PROVIDERS: ADMIT Orthopaedic Surgery; ATTEND Orthopaedic Surgery
PROC: 3E0T3CZ (ICD-10-PCS; 2016-12-18)
PROC: 0SRD0J9 Replacement of Left Knee Joint with Synthetic Substitute, Cemented, Open Approach (ICD-10-PCS; principal; 2016-12-18 07:09)
DX: M17.12 Unilateral primary osteoarthritis, left knee (principal); F32.9 Major depressive disorder, single episode, unspecified; E03.9 Hypothyroidism, unspecified; Z96.651 Presence of right artificial knee joint; K21.9 Gastro-esophageal reflux disease without esophagitis; K59.00 Constipation, unspecified; M81.0 Age-related osteoporosis without current pathological fracture; R32 Unspecified urinary incontinence; F17.200 Nicotine dependence, unspecified, uncomplicated; G47.9 Sleep disorder, unspecified
CPT/HCPCS: 73560; 80053; 83036; 83735; 84100; 84439; 84443; 85014; 85018; 85025; 86850; 86900; 86901; 88305; 88307; 88311; 94150; C1776; J0131; J0690; J2250; J2270; J2370; J2550; J2710; J3010; J7120; J8501; L1830

== ENCOUNTER → 2017-08-27 | Outpatient (CLI) | payer BC ==
[~2017-08-27] MED LIST changes: +ASPI-183 PO; +ASPI1TAB57 PO; +CIPR500T2 PO; +DICL75TA PO; +FORT600S SQ; +HYDR-3516 PO; -IBUP-232 PO; +LACTTAB5 PO; +LEVO150T7 PO; +METO25TA3 PO; +MIRA25TA PO; +PARO10TA2 PO; +PARO25CR PO; +PARO40TA2 PO; -PAXI25TA5 PO; +TRAZ100T10 PO; +VITA1000 PO
--- NOTE | 2017-08-27 09:25 | RADRPT ---
EXAM DATE/TIME: 08/27/2017 09:07 [facility] COMPARISON: No previous studies available for comparison. INDICATIONS : Evaluate for pneumonia, pneumothorax, and communicable diseases. Pre-op left knee surgery. MEDICAL HISTORY : None. SURGICAL HISTORY : None. ENCOUNTER: Initial ACUITY: 1 day PAIN SCORE: 0/10 LOCATION: Bilateral chest FINDINGS: PA and lateral views of the chest demonstrate the lungs to be symmetrically aerated with a benign-mane earing 1.2 cm granulomatous type calcification in the right lung base just above the hemidiaphragm. T here is a faint, 1.4 cm possible nodule in the left lung apex. Lungs otherwise clear of acute infiltr ate. Minimal left lingular scarring/atelectasis. Heart size is normal. Osseous structures are intact. Surgical clips in the right upper abdominal quadrant are characteristic of prior cholecystectomy. CONCLUSION: 1. Questionable 1.4 cm nodule in the left lung apex. CT scan of the chest without contrast is recomme nded for further characterization. 2. Benign-appearing 1.2 cm granulomatous type calcification in the right lung base just above the hem idiaphragm. 3. No acute infiltrate. Inder Gunderson MD on August 27, 2017 at 9:19 Board Certified Radiologist. This report was verified electronically.
[2017-08-27 10:15] LABS: PROTHROMBIN TIME - PATIENT 10.1 SEC (9.8-11.6)
[2017-08-27 10:25] LABS: BACTERIA, URINE FEW /hpf; BILIRUBIN, URINE NEG (NEG); BLOOD, URINE SMALL (NEG); GLUCOSE,URINE NEG (NEG); KETONE, URINE NEG (NEG); MUCUS URINE FEW /lpf (OCC); NITRITE,URINE NEG (NEG); PH, URINE 5.5 (5.0-8.5); SQUAMOUS EPITHELIAL CELL URINE <1 /hpf (0-5); URINE COLOR YELLOW (YELLW/STRAW); URINE LEUKOCYTE ESTERASE SMALL (NEG)
[2017-08-27 10:41] LABS: BICARBONATE 28.6 MEQ/L (21.0-32.0); CALCIUM 9.4 MG/DL (8.5-10.1); CREATININE 0.83 MG/DL (0.50-1.00)
--- NOTE | 2017-08-27 11:55 | EKG ---
Date Performed: 08/27/2017 Time Performed: 08:19:06 PTAGE: 66 years EKG: SINUS BRADYCARDIA ST DEVIATION AND MODERATE T-WAVE ABNORMALITY, CONSIDER ANTEROLATERAL ISCH EMIA ABNORMAL ECG NO PREVIOUS TRACING DOCTOR: Valdo Roberts Interpretating Date/Time 08/27/2017 11:54:32
== END ==
LOC: CPRE 08:01
PROVIDERS: ATTEND Orthopaedic Surgery
DX: Z01.810 Encounter for preprocedural cardiovascular examination (principal); Z01.811 Encounter for preprocedural respiratory examination; Z01.812 Encounter for preprocedural laboratory examination; Z01.818 Encounter for other preprocedural examination; M17.12 Unilateral primary osteoarthritis, left knee; R94.31 Abnormal electrocardiogram [ECG] [EKG]; R82.99 Other abnormal findings in urine; B96.20 Unspecified Escherichia coli [E. coli] as the cause of diseases classified elsewhere
CPT/HCPCS: 36415; 71046; 80048; 81001; 85610; 87077; 87086; 87186; 93005

== ENCOUNTER → 2017-09-05 | Day surgery (SDC) | END | disposition home or self-care (01) | DX: M65.9 Synovitis and tenosynovitis, unspecified (principal); M17.12 Unilateral primary osteoarthritis, left knee; I48.91 Unspecified atrial fibrillation; E07.9 Disorder of thyroid, unspecified; K21.9 Gastro-esophageal reflux disease without esophagitis; M81.0 Age-related osteoporosis without current pathological fracture; F32.9 Major depressive disorder, single episode, unspecified; Z79.82 Long term (current) use of aspirin; Z88.2 Allergy status to sulfonamides; Z90.710 Acquired absence of both cervix and uterus; Z96.652 Presence of left artificial knee joint | CPT/HCPCS: 01400; 29875; 87015; 87070; 87102; 87116; 87205; 87206; J0690; J1200; J1885; J2250; J2270; J2370; J3010; J3300; J7120; J7613; J8501 ==